=== PATIENT | female | born 1955 | race Caucasian/White ===

== ENCOUNTER → 2023-12-30 07:45 | Outpatient (REF) | payer MEDICARE, OTHER, SELFPAY | LOC: RAD 07:45 | PROVIDERS: ATTENDING PHYSICIAN Surgery Vascular Surgery; REFERRING PHYSICIAN Internal Medicine Cardiovascular Disease | DX: I77.9 Disorder of arteries and arterioles, unspecified (principal) | CPT/HCPCS: 93922; 93925 ==

== ENCOUNTER → 2024-02-25 10:12 | Outpatient (REF) | payer MEDICARE, OTHER, SELFPAY ==
[2024-02-25 10:44] LABS: % Basophils 1.1 % (0-2); % Immature Granulocytes 0.4 % (0-0.5); % Lymphocytes 16.2 % (20.5-51.1); % Monocytes 8.9 % (1.7-9.3); % Neutrophils 71.4 % (42.2-75.2); Absolute Basophils 0.1 10^3/uL (0-0.2); Absolute Eosinophils 0.2 10^3/uL (0-0.7); Absolute Lymphocytes 1.4 10^3/uL (1.2-3.4); Absolute Monocytes 0.8 10^3/uL (0.1-0.6); Hematocrit 45.3 % (37.0-47.0); Hemoglobin 14.8 g/dL (12.0-16.0); Mean Corp Hgb Conc. 32.7 g/dL (33.0-37.0); Mean Corpuscular Hgb 31.7 pg (27.0-31.0); Mean Platelet Volume 10.7 fL (7.4-10.4); Nucleated Red Blood Cells % 0 %; Platelet Count 180 10^3/uL (130-400); Red Blood Cell Count 4.67 10^6/uL (4.20-5.40); Red Cell Dist. Width 13.8 % (11.5-14.5); White Blood Cell Count 8.4 10^3/uL (4.8-10.8)
[2024-02-25 10:52] LABS: Blood Urea Nitrogen 19 mg/dl (7-17); Calcium 9.9 mg/dl (8.4-10.2); Carbon Dioxide 27 mmol/L (22-30); Chloride 102 mmol/L (98-107); Glucose 83 mg/dl (70-99); Sodium 140 mmol/L (135-145); eGFR > 60.00
== END ==
LOC: REG 10:12
PROVIDERS: ATTENDING PHYSICIAN Surgery; FAMILY PHYSICIAN Internal Medicine Cardiovascular Disease
DX: K43.2 Incisional hernia without obstruction or gangrene (principal); Z01.812 Encounter for preprocedural laboratory examination
CPT/HCPCS: 36415; 80048; 85025

== ENCOUNTER → 2024-02-26 14:50 | Outpatient (REF) | payer MEDICARE, OTHER, SELFPAY | LOC: RAD 14:50 | PROVIDERS: ATTENDING PHYSICIAN Surgery; FAMILY PHYSICIAN Family Medicine | DX: K43.2 Incisional hernia without obstruction or gangrene (principal) | CPT/HCPCS: 74177; Q9967 ==

== ENCOUNTER 2024-03-16 06:21 | Day surgery (SDC) | payer MEDICARE, OTHER, SELFPAY ==
[2024-02-26 14:00] VITALS: BMI 23.8
[2024-03-16] VITALS (12 sets, daily range): BP systolic 0–138; BP diastolic 52–81; BMI 23.8
[2024-03-16] MEDS: TYLENOL 1000 MG PO (11:29)
[2024-03-16] MEDS: NORMOSOL-R/PLASMALYTE-A 1000 IV ×2 (11:31→17:27)
--- NOTE | 2024-03-16 15:16 | W.IMMPOSTOP ---
Surgical Immed Post Op Note
-
Primary Surgeon: Boyd
Assisting Surgeon: ELIZABETH [email or web address]
Pre-op Diagnosis: Ventral incisional hernia
Post-op Diagnosis: Ventral incisional hernia
Procedure Performed: Robotic ventral incisional hernia repair with mesh
Anesthesia Type: General
Specimen / Cultures: None
Estimated Blood Loss: 3 cc
Complications: None
Operative Findings:
1. Contents reduced, sac excised, fascial defect 4.5 x 4.5 cm
2. Primary closure with #1 PDS Stratafix symmetric
3. IPOM Ventralight ST 10 x 15 cm mesh secured with 2-0 PDS spiral
4. 19 Fr round drain into subcutaneous space
[2024-03-16] MEDS: TYLENOL 650 MG PO ×2 (17:34→21:18)
--- NOTE | 2024-03-16 17:53 | PTCARENOTE ---
Patient arrived from PACU in bed with SCDS on. Call haque within reach. Oriented to room. Complains of no pain at this time. Incisions CDI. EZIO to RLQ draining sanguineous.
[2024-03-17] MEDS: TYLENOL PO (01:36)
[2024-03-17 03:55] VITALS: BP 121/56
[2024-03-17] MEDS: TYLENOL 650 MG PO ×2 (04:07→08:29)
[2024-03-17 07:45] VITALS: BP 135/59
[2024-03-17] MEDS: ASPIR LOW (ENTERIC COATED) 81 MG PO (08:29)
[2024-03-17] MEDS: LIPITOR 80 MG PO (08:29)
[2024-03-17] MEDS: PROTONIX IV 40 MG IV (08:30)
[2024-03-17] MEDS: TOPROL XL 25 MG PO (08:30)
[2024-03-17] MEDS: NSS (PRESERVATIVE FREE) 10 ML IV (08:30)
[2024-03-17] MEDS: NEURONTIN 100 MG PO (08:30)
--- NOTE | 2024-03-17 08:48 | W.PN.GS2 ---
Today's Communication / Plan
-
-- Regular diet
-- HLIV
-- Home meds reviewed/ordered
-- CM consult for possible VNA, will be discharged with EZIO in place
-- Tentative plan for DC this afternoon if pain control, tolerating diet and drain/wound care in order
Assessment / Plan
-
Patient is a 69 yo F POD#1 s/p robotic ventral incisional hernia repair with mesh,
AVSS
Recovering well. No postoperative concerns. Clinical evidence of ileus. Pain well-controlled.
-- Regular diet
-- Pain control: Tylenol and Oxycodone
-- HLIV
-- Home meds reviewed/ordered
-- DVT: Lovenox
-- OOB/ambulate
-- CM consult for possible VNA, will be discharged with EZIO in place
-- Tentative plan for DC this afternoon if pain control, tolerating diet and drain/wound care in order
Subjective Data
-
Date of Service: March 17, 2024
Image guidance. Pain well-controlled. No nausea or vomiting. Passing small amounts of flatus, no pain. Voiding. Ambulating.
Objective Data
-
Intake and Output
03/16/24 03/17/24 03/18/24
06:59 06:59 06:59
Intake Total 1270 / 1270
Output Total
Balance 1250 / 1250
Intake:
Oral fluids 270 / 270
IV fluids (Total) 1000 / 1000
Normosol 100 / 100
Output:
Drain Output (Total)
Right Lower Abdomen Savage-
Noble
Other:
Number of approximated MODERATE 2
amounts of urine
Vital Signs
Temp Pulse Resp BP Pulse Ox
98.7 F 69 18 135/59 93
03/17/24 07:45 03/17/24 08:30 03/17/24 07:45 03/17/24 08:30 03/17/24 07:45
Physical Exam
-
Gen; NAD
Abd: soft, NT/ND, non-peritoneal, binder in place, incision c/d/i - mild ecchymosis, no erythema or drainage, EZIO serosang, no palpable hernia or significant seroma
--- NOTE | 2024-03-17 10:06 | CM ---
Alert awake oriented patient who lives alone in a 2 story home with 4 steps to enter and bed bathroom on first floor. She is independent in driving and in all activities of daily living.Pt has EZIO drain. Offered VN she declined she said she has had a
EZIO before and can care for it..
No adaptive devices
Nick SEYMOUR had VN/SNF
Pharmacy [facility]
PCP Dr Canseco
PLAN Home no needs
== END 2024-03-17 10:18 | disposition home or self-care (01) ==
LOC: SDS 06:21
PROVIDERS: ATTENDING PHYSICIAN Surgery
DX: K43.2 Incisional hernia without obstruction or gangrene (principal)
CPT/HCPCS: 49593; C1713

== ENCOUNTER → 2025-01-04 07:42 | Outpatient (REF) | payer MEDICARE, OTHER, SELFPAY | LOC: RAD 07:42 | PROVIDERS: ATTENDING PHYSICIAN Surgery Vascular Surgery; FAMILY PHYSICIAN Family Medicine | DX: I77.9 Disorder of arteries and arterioles, unspecified (principal) | CPT/HCPCS: 93922; 93978 ==